=== PATIENT | female | born 1965 | race Caucasian/White ===

== ENCOUNTER 2016-10-24 17:26 | Emergency (ER) | payer BC, MEDICAID, OTHER ==
[2016-10-24] MEDS ORDERED: Sodium Chloride 0.9% 10 ML Syringe FLUSH PRN (17:45)
[2016-10-24] MEDS ORDERED: Sodium Chloride 0.9% 1,000 ML IV ONE (17:45)
[2016-10-24] MEDS ORDERED: Ketorolac 30 MG/ML SDV IVPUSH ONE (17:46)
[2016-10-24] MEDS ORDERED: Morphine 4 MG/ML Syringe IVPUSH ONE (17:46)
[2016-10-24] MEDS ORDERED: Sodium Chloride 0.9% 10 ML Syringe FLUSH ONE (18:41)
[2016-10-24] MEDS ORDERED: Iopamidol 612 MG/ML 150 ML Bottle IV PRN (18:41)
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
[2016-10-24 19:17] VITALS: BP 127/73
[2016-10-24] MEDS ORDERED: Potassium Chloride 20 MEQ Tab.ER PO ONE (19:50)
== END 2016-10-24 20:04 | disposition home or self-care (01) ==
LOC: JP.ED 17:26
DX: S20.219A Contusion of unspecified front wall of thorax, initial encounter (principal); R10.12 Left upper quadrant pain; F17.210 Nicotine dependence, cigarettes, uncomplicated; Y93.16 Activity, rowing, canoeing, kayaking, rafting and tubing
CPT/HCPCS: 36415; 71260; 74177; 80048; 85025; 96361; 96374; 96375; 99285; A9270; J1885; J2270; J7030; J7040; J7050

== ENCOUNTER 2020-04-16 18:35 | Emergency (ER) | payer MEDICAID, OTHER ==
[2020-04-16] MEDS ORDERED: LORazepam 2 MG/ML SDV IVPUSH ONE (18:51)
--- NOTE | 2020-04-16 19:01 | EDM.PDOC ---
ED HPI GENERAL MEDICAL PROBLEM - General Chief Complaint: Chest Pain Stated Complaint: CONFUSION Time Seen by Provider: 04/16/20 19:00 Source of Information: Reports: Patient, Family, RN. Denies: Old Records History Limitations: Reports: Other (minimal records) - History of Present Illness INITIAL COMMENTS - FREE TEXT/NARRATIVE: 54 yo occasional smoker presents after several self limiting episodes of confusion, anxiety and L arm numbness that first occurred about 10 am today. Has no hx of AODM or HTN. Took ASA 650 mg before coming to the ER. Was last to a medical provider over a year ago. FHx is not contributory that we can determine at this time. Here with . Some dizziness with these spells. Onset: Today Onset Date: 04/16/20 Onset Time: 10:00 Duration: Hour(s):, Intermittent Location: Reports: Head (confusion), Upper Extremity, Left (numbness) Quality: Reports: Other (numbness of L arm) Severity: Moderate Improves with: Reports: Other (time) Worsens with: Reports: Other (unknown) Context: Reports: Other (See HPI) Associated Symptoms: Reports: Confusion, Other (L arm numbness). Denies: Chest Pain, Diaphoresis, Nausea/Vomiting, Shortness of Breath Treatments [employer]: Reports: Aspirin (650 mg) - Related Data Allergies Allergy/AdvReac Type Severity Reaction Status Date / Time No Known Allergies Allergy Verified 04/16/20 18:44 Home Meds: Home Meds NK [No Known Home Meds] 10/24/16 [History] Past Medical History - Past Health History Medical/Surgical History: Denies Medical/Surgical History Psychiatric History: Reports: Panic Attack Endocrine/Metabolic History: Reports: Obesity/BMI 30+ - Past Surgical History Head Surgeries/Procedures: Reports: None Endocrine Surgical History: Reports: None Dermatological Surgical History: Reports: None Social & Family History - Tobacco Use Tobacco Use Status *Q: Light Tobacco User Years of Tobacco use: 5 Packs/Tins Daily: 0.1 - Caffeine Use Caffeine Use: Reports: None - Recreational Drug Use Recreational Drug Use: No ED ROS GENERAL - Review of Systems Review Of Systems: See Below Constitutional: Reports: No Symptoms HEENT: Reports: No Symptoms Respiratory: Reports: No Symptoms Cardiovascular: Reports: No Symptoms Endocrine: Reports: No Symptoms GI/Abdominal: Reports: No Symptoms : Reports: No Symptoms Musculoskeletal: Reports: No Symptoms Skin: Reports: No Symptoms Neurological: Reports: Confusion, Dizziness, Numbness (L arm). Denies: Headache, Pre-Existing Deficit, Seizure, Syncope, Difficulty Walking, Change in Speech, Gait Disturbance Psychiatric: Reports: Anxiety - Physical Exam Exam: See Below Exam Limited By: No Limitations General Appearance: Alert, WD/WN, Anxious, Mild Distress (during the spell only) Eye Exam: Bilateral Eye: EOMI, Normal Inspection, PERRL Ears: Normal External Exam, Normal Canal, Hearing Grossly Normal Nose: Normal Inspection, No Blood Throat/Mouth: Normal Inspection, Normal Lips, Normal Oropharynx, Normal Voice, No Airway Compromise Head Exam: Atraumatic, Normocephalic Neck: Normal Inspection Respiratory/Chest: No Respiratory Distress, Lungs Clear, Normal Breath Sounds, No Accessory Muscle Use Cardiovascular: Regular Rate, Rhythm, No Edema GI/Abdominal: Normal Bowel Sounds, Soft, Non-Tender, No Distention Neuro Exam (Abbreviated): Alert, Oriented, CN II-XII Intact, Normal Cognition, No Motor/Sensory Deficits Back Exam: Normal Inspection. No: CVA Tenderness (R), CVA Tenderness (L) Extremities: Normal Inspection, Normal Range of Motion, Non-Tender, No Pedal Edema Psychiatric: Normal Affect, Normal Mood Skin Exam: Warm, Dry, Intact, Normal Color, No Rash #1 Interpretation EKG Date: 04/16/20 Time: 18:35 Rhythm: NSR Rate (Beats/Min): 90 [place]: Normal P-Wave: Present QRS: Normal ST-T: Normal QT: Normal Comparison: NA - No Prior EKG Course - Vital Signs Last Recorded V/S: Last Vital Signs Temp 36.8 C 04/16/20 18:44 Pulse 89 04/16/20 19:04 Resp 13 04/16/20 19:04 BP 140/88 04/16/20 19:04 Pulse Ox 99 04/16/20 19:04 - Orders/Labs/Meds Orders: Active Orders 24 hr Category Date Time Status Cardiac Monitoring [RC] .As Directed Care 04/16/20 18:52 Active EKG Documentation Completion [RC] ASDIRECTED Care 04/16/20 18:52 Active Iopamidol [Isovue-370 (76%)] Med 04/16/20 19:15 Active 100 ml IV . DIRECTED Sodium Chloride 0.9% [Normal Saline] 100 ml Med 04/16/20 19:15 Active IV ASDIRECTED Sodium Chloride 0.9% [Saline Flush] Med 04/16/20 19:06 Active 10 ml FLUSH ASDIRECTED PRN Saline Lock Insert [OM.PC] Routine Oth 04/16/20 19:06 Ordered EKG 12 Lead [EK] Routine Ther 04/16/20 18:52 Ordered Medication Orders Sodium Chloride (Normal Saline) 100 mls @ 3 mls/sec IV ASDIRECTED AJITH Last Admin: 04/16/20 19:41 Dose: 3 mls/sec Documented by: MARGOT Iopamidol (Isovue-370 (76%)) 100 ml IV . DIRECTED AJITH Last Admin: 04/16/20 19:41 Dose: 100 ml Documented by: MARGOT Sodium Chloride (Saline Flush) 10 ml FLUSH ASDIRECTED PRN PRN Reason: Keep Vein Open Last Admin: 04/16/20 19:41 Dose: 10 ml Documented by: Admin: 04/16/20 19:20 Dose: 10 ml Documented by: ELISABET Labs: Laboratory Tests 04/16/20 04/16/20 04/16/20 Range/Units 18:42 18:42 20:06 WBC 8.3 (4.5-11.0) K/uL RBC 4.24 (3.30-5.50) M/uL Hgb 13.5 (12.0-15.0) g/dL Hct 41.2 (36.0-48.0) % MCV 97 (80-98) fL MCH 32 H (27-31) pg MCHC 33 (32-36) % Plt Count 229 (150-400) K/uL Sodium 137 L (140-148) mmol/L Potassium 4.4 (3.6-5.2) mmol/L Chloride 101 (100-108) mmol/L Carbon Dioxide 22 (21-32) mmol/L Anion Gap 18.4 H (5.0-14.0) mmol/L BUN 22 H (7-18) mg/dL Creatinine 0.8 (0.6-1.0) mg/dL Est Cr Clr Drug Dosing 78.18 mL/min Estimated GFR (MDRD) > 60 (>60) Glucose 96 (74-106) mg/dL Calcium 10.2 H (8.5-10.1) mg/dL Troponin I < 0.017 (0.000-0.056) ng/mL Urine Color Yellow (YELLOW) Urine Appearance Clear (CLEAR) Urine pH 7.5 (5.0-8.0) Ur Specific [place] 1.015 (1.008-1.030) Urine Protein Negative (NEGATIVE) mg/dL Urine Glucose (UA) Negative (NEGATIVE) mg/dL Urine Ketones 15 H (NEGATIVE) mg/dL Urine Occult Blood Trace-intact H (NEGATIVE) Urine Nitrite Negative (NEGATIVE) Urine Bilirubin Negative (NEGATIVE) Urine Urobilinogen 0.2 (0.2-1.0) EU/dL Ur Leukocyte Esterase Negative (NEGATIVE) Urine RBC 0-5 (0-5) Urine WBC 0-5 (0-5) Ur Epithelial Cells Rare Amorphous Sediment Rare Urine Bacteria Rare Urine Mucus Rare Meds: Medications Generic Name Dose Route Start Last Admin Trade Name Nati PRN Reason Stop Dose Admin Sodium Chloride 100 mls @ 3 mls/sec 04/16/20 19:15 04/16/20 19:41 Normal Saline IV 3 mls/sec ASDIRECTED AJITH Administration Iopamidol 100 ml 04/16/20 19:15 04/16/20 19:41 Isovue-370 (76%) IV 100 ml . DIRECTED AJITH Administration Sodium Chloride 10 ml 04/16/20 19:06 04/16/20 19:41 Saline Flush FLUSH 10 ml ASDIRECTED PRN Administration Keep Vein Open Discontinued Medications Generic Name Dose Route Start Last Admin Trade Name Nati PRN Reason Stop Dose Admin Aspirin 324 mg 04/16/20 18:52 04/16/20 19:06 Aspirin PO 04/16/20 18:53 Not Given ONETIME ONE Lactated Ringer's 1,000 mls @ 1,000 mls/hr 04/16/20 20:36 04/16/20 20:42 Ringers, Lactated IV 04/16/20 21:35 1,000 mls/hr BOLUS ONE Administration Lorazepam 0.5 mg 04/16/20 18:51 04/16/20 19:03 Ativan IVPUSH 04/16/20 18:52 0.5 mg ONETIME ONE Administration - Radiology Interpretation Free Text/Narrative:: CT angio head and neck-FINDINGS/IMPRESSION : No high grade intracranial arterial stenosis or large vessel occlusion. The right vertebral artery is hypoplastic and terminates in the PICA, a normal variant. Read by: Mica Escalante MD @ 04/16/2020 20:23:29 FINDINGS/IMPRESSION : No significant stenosis or occlusion of the cervical carotid and vertebral arteries. Read by: Mica Escalante MD @ 04/16/2020 20:23:59 CT head without contrast- Impression: No intracranial hemorrhage or loss of hyman-white matter differentiation. Please note that all CT scans at this facility use dose modulation, iterative reconstruction, and/or weight-based dosing when appropriate to reduce radiation dose to as low as reasonably achievable. Dictated by Mica Escalante MD @ Apr 16 2020 8:10PM CT Results Date: 04/16/20 CT Results Time: 20:22 - Re-Assessments/Exams Free Text/Narrative Re-Assessment/Exam: 04/16/20 21:22 Feeling a lot better after Ativan, no more recurrences. IV fluids seem to be also offering some benefit. Departure - Departure Time of Disposition: 21:52 Disposition: Home, Self-Care 01 Condition: Good Clinical Impression: Intermittent confusion - Discharge Information *PRESCRIPTION DRUG MONITORING PROGRAM REVIEWED*: Not Applicable *COPY OF PRESCRIPTION DRUG MONITORING REPORT IN PATIENT [place]DS[place]: Not Applicable Referrals: PCP,None [Primary Care Provider] - Forms: ED Department Discharge Additional Instructions: Follow up with your provider amy. No driving tonight. Take lorazepam 0.5 mg right away at the first sign of recurrence of your current condition. No smoking. Avoid salt or salty foods. Return as needed. Sepsis Event Note (ED) - Evaluation Sepsis Screening Result: No Definite Risk - Focused Exam Vital Signs: Vital Signs Temp Pulse Resp BP Pulse Ox 04/16/20 19:04 89 13 140/88 99 04/16/20 18:44 36.8 C 85 11 L 156/95 H 99 04/16/20 18:42 36.8 C 85 11 L 156/95 H 99 - My Orders Last 24 Hours: My Active Orders 04/16/20 18:52 Cardiac Monitoring [RC] .As Directed EKG Documentation Completion [RC] ASDIRECTED EKG 12 Lead [EK] Routine 04/16/20 19:06 Sodium Chloride 0.9% [Saline Flush] 10 ml FLUSH ASDIRECTED PRN Saline Lock Insert [OM.PC] Routine 04/16/20 19:15 Iopamidol [Isovue-370 (76%)] 100 ml IV . DIRECTED Sodium Chloride 0.9% [Normal Saline] 100 ml IV ASDIRECTED - Assessment/Plan Last 24 Hours: My Active Orders 04/16/20 18:52 Cardiac Monitoring [RC] .As Directed EKG Documentation Completion [RC] ASDIRECTED EKG 12 Lead [EK] Routine 04/16/20 19:06 Sodium Chloride 0.9% [Saline Flush] 10 ml FLUSH ASDIRECTED PRN Saline Lock Insert [OM.PC] Routine 04/16/20 19:15 Iopamidol [Isovue-370 (76%)] 100 ml IV . DIRECTED Sodium Chloride 0.9% [Normal Saline] 100 ml IV ASDIRECTED
[2020-04-16] MEDS: Aspirin 81 MG Tab.Chew PO ONE ×2 (19:03→19:06)
[2020-04-16 19:05] VITALS: BP 140/88; PULSE 89
[2020-04-16] MEDS ORDERED: Sodium Chloride 0.9% 100 ML IV SCH (19:15)
[2020-04-16] MEDS ORDERED: Iopamidol 755 Mg/ML 100 ML Bottle IV SCH (19:15)
[2020-04-16] MEDS: Sodium Chloride 0.9% 10 ML Syringe FLUSH PRN ×2 (19:20→19:41)
--- NOTE | 2020-04-16 20:18 | CRLCT ---
Indication: Intermittent confusion and left arm numbness Technique: Nonenhanced axial CT imaging through the head. Coronal reconstructions are provided. Comparison: None Findings: There is no intracranial hemorrhage, edema, or mass effect. There is normal attenuation of the brain parenchyma. The ventricles are normal in size. The basal cisterns are patent. The calvarium is intact. The visualized paranasal sinuses and mastoid air cells are aerated. Impression: No intracranial hemorrhage or loss of hyman-white matter differentiation. Please note that all CT scans at this facility use dose modulation, iterative reconstruction, and/or weight-based dosing when appropriate to reduce radiation dose to as low as reasonably achievable. Dictated by Mica Escalante MD @ Apr 16 2020 8:10PM Signed by Dr. Mica Escalante @ Apr 16 2020 8:16PM
--- NOTE | 2020-04-16 20:25 | CRLCT ---
DATE: 04/16/2020 CLINICAL HISTORY: Patient with confusion and left arm numbness. TECHNIQUE: Standard helical CT image acquisition through the head and neck was performed after intravenous contrast bolus enhancement. Multiplanar reconstructed images were performed and interpreted. COMPARISON: CT same day FINDINGS: The origins of the great vessels from the aortic arch are patent. The origin of the right vertebral artery is patent. The origin of the left vertebral artery is patent. The common carotid arteries are patent There is no stenosis at the origin of the right internal carotid artery. There is no stenosis at the origin of the left internal carotid artery. The rest of the cervical segments of the internal carotid arteries are patent up to their intracranial segments. The intracranial segments of the internal carotid arteries are patent. The left vertebral artery is dominant. The cervical segments of the vertebral arteries are patent. The intracranial segments of the vertebral arteries are patent. The middle cerebral arteries are normal without aneurysm or proximal occlusion identified. The anterior cerebral arteries are normal without aneurysm or proximal occlusion identified. The anterior communicating artery is well visualized and appears normal. The basilar artery is normal without aneurysm or occlusion. The posterior cerebral arteries are normal without aneurysm or proximal occlusion. There is normal opacification of major intracranial venous structures. The visualized lung apices are unremarkable The thyroid gland demonstrates an 8mm heterogeneous nodule in its left lobe. The soft tissues of the neck are unremarkable. There are degenerative changes in the cervical spine. IMPRESSION: 1. Patent cervical and proximal intracranial vasculature. 2. 8mm heterogeneous nodule in the left thyroid lobe. This could be further assessed with ultrasound if clinically warranted. Please note that all CT scans at this facility use dose modulation, iterative reconstruction, and/or weight-based dosing when appropriate to reduce radiation dose to as low as reasonably achievable. Dictated by Amos Torres MD @ Apr 16 2020 10:11PM Signed by Dr. Amos Torres @ Apr 16 2020 10:12PM
[2020-04-16] MEDS ORDERED: Lactated Ringers 1,000 ML IV ONE (20:36)
== END 2020-04-16 22:05 | disposition home or self-care (01) ==
LOC: JP.ED 18:35
DX: R41.0 Disorientation, unspecified (principal); E66.9 Obesity, unspecified; Z68.32 Body mass index [BMI] 32.0-32.9, adult; F17.200 Nicotine dependence, unspecified, uncomplicated
CPT/HCPCS: 36415; 70450; 70496; 70498; 80048; 81001; 84484; 85027; 93005; 93010; 96374; 99285; J2060; J7120; Q9967; A9270-GY

== ENCOUNTER 2022-07-15 11:45 | Emergency (ER) | payer OTHER ==
[2022-07-15] MEDS ORDERED: Aspirin 81 MG Tab.Chew PO ONE (12:30)
[2022-07-15 14:43] VITALS: BP 139/77; PULSE 59
== END 2022-07-15 15:47 | disposition home or self-care (01) ==
LOC: JP.ED 11:45
DX: R07.89 Other chest pain (principal); E05.90 Thyrotoxicosis, unspecified without thyrotoxic crisis or storm; R94.6 Abnormal results of thyroid function studies; E66.9 Obesity, unspecified; Z86.16 Personal history of COVID-19; Z68.32 Body mass index [BMI] 32.0-32.9, adult
CPT/HCPCS: 36415; 80048; 82140; 82803; 83735; 84439; 84443; 84481; 84484; 85025; 85379; 85610; 85730; 93005; 99285; A9270